=== PATIENT | male | born 1935 | race Caucasian/White ===

== ENCOUNTER 2021-05-02 07:38 | Inpatient (IN) | payer MEDICARE ==
[2021-04-25 15:16] LABS: EOSINOPHILS # (AUTO) 0.2 X10'3 (0-0.9); RED CELL DISTRIBUTION WIDTH 13.9 % (11.5-14.5)
[2021-04-25 15:21] LABS: ALBUMIN/GLOBULIN RATIO 1.2 (1.1-1.5); ALKALINE PHOSPHATASE 93 IU/L (46-116); BLOOD UREA NITROGEN 26 MG/DL (7-18); BUN/CREATININE RATIO 19.4 (5.4-32.0); CALCIUM 8.5 MG/DL (8.5-10.1); CHLORIDE 106 MMOL/L (99-107); CREATININE 1.34 MG/DL (0.60-1.10); PRE OP ALT 17 U/L (30-65); PRE OP ANION GAP 8 (8-16); PRE OP AST 24 U/L (10-37); PRE OP BILIRUB, TOTAL 0.6 MG/DL (0.0-1.0); PRE OP GLUCOSE 157 MG/DL (70-104); PRE OP SODIUM 140 MMOL/L (135-145); TOTAL CARBON DIOXIDE 25.6 MMOL/L (24-32); TOTAL PROTEIN 7.4 G/DL (6.4-8.2); eGFR 50 ML/MIN
[2021-04-25 15:23] LABS: MONOCYTES # (AUTO) 0.8 X10'3 (0-0.9); PRE OP HEMATOCRIT 39.7 % (42.0-52.0); PRE OP POTASSIUM 3.8 MMOL/L (3.4-5.1)
[2021-04-25 16:06] LABS: BASOPHILS % (AUTO) 0.8 % (0-1); EOSINOPHILS % (AUTO) 2.9 % (0-6); LYMPHOCYTES % (AUTO) 20.4 % (21-51); MEAN CORPUSCULAR HEMOGLOBIN 32.8 PG (27.0-31.0); MEAN CORPUSCULAR HGB CONC 33.7 g/dL (33.0-36.5); MEAN CORPUSCULAR VOLUME 97.5 FL (78-98); MEAN PLATELET VOLUME 9.1 FL (7.4-10.4); MONOCYTES % (AUTO) 14.8 % (2-12); NEUTROPHILS % (AUTO) 61.1 % (42-75); PRE OP HEMOGLOBIN 13.4 g/dL (14.0-17.9); PRE OP PLATELET COUNT 176 X10'3 (140-440); RED BLOOD COUNT 4.07 X10'6 (4.70-6.10)
[2021-04-25 16:07] LABS: LYMPHOCYTES # (AUTO) 1.1 X10'3 (1.1-4.8); NEUTROPHILS # (AUTO) 3.4 X10'3 (1.8-7.7)
[2021-05-02] VITALS (18 sets, daily range): BP systolic 122–180; BP diastolic 66–106
[~2021-05-02] VITALS: Ht 167.6 cm; Wt 71.4 kg
[~2021-05-02 07:38] MED LIST: DOCUMENT DATE & TIME OF BETA-BLOCKER PO ONE; GABA-530 PO; HYDR12.55 PO; MELO-100 PO; METO-384 PO; OXYB5TAB16 PO; cefazolin/dext.iso 2gm/100ml IV ONE; famotidine 20mg tablet PO ONE; ringers solution, lacted 1,000 ML IV SCH; tranexamic acid 650mg tablet PO ONE; vancomycin 1,500 MG in NS 300ml IV soln IV ONE
[2021-05-02] MEDS ORDERED: sevoflurane 250ml liquid IH ONE (10:45)
[2021-05-02] MEDS ORDERED: dexamethasone sod phosphate 10mg/ml inj ONE (10:45)
[2021-05-02] MEDS ORDERED: fentaNYL/PF 50MCG/1 ML 2ML syringe ONE (10:56)
[2021-05-02] MEDS ORDERED: midazolam 1 mg/ML 2ml injection ONE (11:19)
[2021-05-02] MEDS ORDERED: ROPIVAcaine 0.5% (5mg/ml) 30ml vial ONE ×2 (11:48→12:34)
[2021-05-02] MEDS ORDERED: ketorolac trometh. 30mg/ml inj. ONE (11:48)
[2021-05-02] MEDS ORDERED: acetaminophen 1,000mg/100ml IV 100 ML IV PRN (12:00)
[2021-05-02] MEDS ORDERED: meperidine/PF 25mg/ml syringe IV PRN ×3 (12:00)
[2021-05-02] MEDS ORDERED: ondansetron/PF 4mg/2ml inj IV PRN ×2 (12:00→12:50)
[2021-05-02] MEDS ORDERED: hydrALAZINE 20mg/ml inj. IV PRN (12:00)
[2021-05-02] MEDS ORDERED: labetalol 20mg/4ml (5mg/ml) syringe IV PRN (12:00)
[2021-05-02] MEDS ORDERED: morphine 2 MG/ML inj. syringe IV PRN (12:00)
[2021-05-02] MEDS ORDERED: ROPIVAcaine 0.2% (10 MG/5 ML) BOLUS INJECTION INTERSCALE PRN (12:00)
[2021-05-02] MEDS ORDERED: ringers solution, lacted 1,000 ML IV SCH (12:00)
[2021-05-02] MEDS ORDERED: ROPIVAcaine 0.2%/PF PUMP/bolus 545 ML INTERSCALE SCH (12:00)
[2021-05-02] MEDS ORDERED: morphine 4 MG/ML inj SYRINge IV PRN (12:00)
[2021-05-02] MEDS ORDERED: proCHLORperazine 10 MG/2 ml inj IV PRN (12:00)
[2021-05-02] MEDS ORDERED: 0.9 % SODIUM CHLORIDE 10 ML VIAL ONE (12:35)
[2021-05-02] MEDS ORDERED: ePHEDrine 50MG/ML INJ. ONE (12:35)
[2021-05-02] MEDS ORDERED: propofol inj 20 ML IV ONE (12:35)
[2021-05-02] MEDS ORDERED: rocuronium 10mg/ml inj IV ONE (12:35)
[2021-05-02] MEDS ORDERED: LIDOcaine 2% (20mg/ml) 5ml vial ONE (12:35)
[2021-05-02] MEDS ORDERED: ondansetron/PF 4mg/2ml inj ONE (12:38)
[2021-05-02] MEDS ORDERED: glycopyrrolate 0.2mg/ml inj ONE (12:41)
[2021-05-02] MEDS ORDERED: neostigmine methylsulfate 1 MG/ML 10ml vial ONE (12:41)
[2021-05-02] MEDS ORDERED: diphenhydrAMINE 25mg capsule PO PRN ×2 (12:50)
[2021-05-02] MEDS ORDERED: acetaminophen 325mg tablet PO PRN (12:50)
[2021-05-02] MEDS ORDERED: oxyCODONE IR 5mg (immed. release) tablet PO PRN ×2 (12:50)
[2021-05-02] MEDS ORDERED: HYDROmorphone 1 mg/ml syringe IV PRN (12:50)
[2021-05-02] MEDS ORDERED: HYDROmorphone inj. 0.5 MG/0.5 ML DISP.SYRIN IV PRN (12:50)
[2021-05-02] MEDS ORDERED: magnesium hydroxide 30ml (MOM) UD suspension PO PRN (12:50)
[2021-05-02] MEDS ORDERED: bisacodyl 10mg suppository rectal RC PRN (12:50)
[2021-05-02] MEDS ORDERED: gabapentin 300mg capsule PO SCH (13:00)
--- NOTE | 2021-05-02 13:00 | NUR ---
Received from OR via BED, accompanied by Anesthesiologist and report given by Anesthesiologist. PATIENT WAKING UP, NO S/S OF PAIN, V/S WNL, SCD ON, 20G TO LUE, RIGHT SHOULDER DRESSING CDI W/ SLING. ICE AND ELEVATED RUE.
--- NOTE | 2021-05-02 14:30 | NUR ---
PATIENT A&OX4, DENIES PAIN, V/S WNL, SCD ON, 20G TO LUE, RIGHT SHOULDER DRESSING CDI W/ SLING. ICE AND ELEVATED RUE. ON Q STARTED, PATIENT TAKEN TO SURGICAL AND REPORT GIVEN ENMA PAUL WHO HAS TAKEN OVER PATIENT CARE.
[2021-05-02 15:50] LABS: LYMPHOCYTES,SYNOVIAL FLUID 67 % (0-75); MONOCYTES,SYNOVIAL FLUID 31 % (0-0); NEUTROPHILS,SYNOVIAL FLUID 2 % (0-25); SYNOVIAL LINING CELLS MANY
[2021-05-02 16:11] LABS: APPEARANCE,SYNOVIAL FLUID HAZY; COLOR,SYNOVIAL FLUID RED; SYN WBC 1150 /CU MM (0-200)
[2021-05-02 16:12] LABS: SYN RBC 12100 /CU MM (0)
[2021-05-02] MEDS: gabapentin 300mg capsule PO SCH (19:47)
[2021-05-02] MEDS: acetaminophen 325mg tablet PO SCH ×2 (19:47→20:00)
[2021-05-02] MEDS: ceFAZolin/D5W- 1GM premix 50 ML IV SCH (19:47)
[2021-05-02] MEDS: potassium cl 20mEq in 1/2 NS 1,000 ML IV SCH ×2 (19:47→20:50)
[2021-05-02] MEDS ORDERED: vancomycin/NS 1 GM ADD-VANTAGE 250 ML IV SCH (20:00)
[2021-05-02] MEDS ORDERED: sennosides 8.6mg tablet PO SCH (21:00)
[2021-05-03 00:10] VITALS: BP 153/82
[2021-05-03] MEDS: ceFAZolin/D5W- 1GM premix 50 ML IV SCH (01:34)
[2021-05-03] MEDS: acetaminophen 325mg tablet PO SCH ×3 (01:35→14:00)
--- NOTE | 2021-05-03 02:09 | NUR ---
took off scd's keeping pt awake.
[2021-05-03] MEDS: potassium cl 20mEq in 1/2 NS 1,000 ML IV SCH (04:50)
--- NOTE | 2021-05-03 06:17 | NUR ---
reported to days. noted pt anticipates discharge today
--- NOTE | 2021-05-03 06:29 | NUR ---
Patient in room [facility]. I have received report from SANDRITA Lo and had the opportunity to ask questions and assume patient care.
[2021-05-03 06:38] LABS: BASOPHILS % (AUTO) 0.1 % (0-1); EOSINOPHILS % (AUTO) 0.1 % (0-6); HEMATOCRIT 36.9 % (42.0-52.0); HEMOGLOBIN 12.4 g/dl (14.0-17.9); LYMPHOCYTES # (AUTO) 0.7 X10'3 (1.1-4.8); LYMPHOCYTES % (AUTO) 9.2 % (21-51); MEAN CORPUSCULAR HEMOGLOBIN 33.7 PG (27.0-31.0); MEAN CORPUSCULAR HGB CONC 33.7 g/dL (33.0-36.5); MEAN CORPUSCULAR VOLUME 99.8 FL (78-98); MEAN PLATELET VOLUME 9.3 FL (7.4-10.4); MONOCYTES # (AUTO) 1.4 X10'3 (0-0.9); MONOCYTES % (AUTO) 18.2 % (2-12); NEUTROPHILS # (AUTO) 5.7 X10'3 (1.8-7.7); NEUTROPHILS % (AUTO) 72.4 % (42-75); PLATELET COUNT 173 X10'3 (140-440); RED BLOOD COUNT 3.69 X10'6 (4.70-6.10); RED CELL DISTRIBUTION WIDTH 13.6 % (11.5-14.5); WHITE BLOOD COUNT 7.9 X10'3 (4.5-11.0)
[2021-05-03] MEDS: gabapentin 300mg capsule PO SCH (07:19)
[2021-05-03 07:30] LABS: ANION GAP 9 (8-16); CHLORIDE 107 MMOL/L (99-107); POTASSIUM 4.2 MMOL/L (3.5-5.1); SODIUM 139 MMOL/L (135-145); TOTAL CARBON DIOXIDE 22.6 MMOL/L (24-32)
[2021-05-03 07:53] LABS: LARGE PLATELETS FEW; PLATELET ESTIMATE NORMAL; TOTAL CELLS COUNTED 100
[2021-05-03] MEDS ORDERED: HYDROchlorothiazide 12.5mg capsule PO SCH (08:00)
[2021-05-03] MEDS ORDERED: MELOXICAM 7.5MG TAB PO SCH (08:00)
[2021-05-03] MEDS ORDERED: oxybutynin 5mg tablet PO SCH (08:00)
[2021-05-03] MEDS ORDERED: metoprolol succinate 25mg (24-HOUR) SR. Tablet PO SCH (08:00)
[2021-05-03 08:19] VITALS: BP 151/70
[2021-05-03] MEDS ORDERED: aspirin 325mg tablet PO SCH (08:30)
[2021-05-03 11:00] VITALS: BP 156/79
--- NOTE | 2021-05-03 12:21 | NUR ---
Melissa Griffith in to see patient. She instructed patient to not remove dressing but if "oozing" to change it. She instructed patient he is ok to remove ONQ ball and shower on Saturday. Patient verbalized understanding of teaching.
--- NOTE | 2021-05-03 15:00 | NUR ---
Discussed with patient discharge instructions. Patient did not want me to go over discharge packet. Patient states he is anxious to go home and stated he has been here many times and knows what he is doing and he will read it when he goes home. Patient distracted with going home. Attempted to reinforce instructions by Melissa but again patient stated he will read instructions when he gets home and placed instructions in bag. Patient given Bao pack to go home. Patient's daughter here to picker packer patient and he was escorted down to [facility]. Patient preferred to walk rather than wheelchair. All patient belongings sent home with patient.
[2021-05-04] MEDS ORDERED: acetaminophen 325mg tablet PO PRN (12:50)
== END 2021-05-03 14:55 | disposition home or self-care (01) | DRG 496 ==
LOC: UNDOADMIN 07:38 → PAS IN 07:38 → SUR 3N 14:35 → PAS IN 14:35
PROVIDERS: ADMIT Orthopaedic Surgery; ATTEND Orthopaedic Surgery
PROC: 0RPJ0JZ Removal of Synthetic Substitute from Right Shoulder Joint, Open Approach (ICD-10-PCS; 2021-05-02)
PROC: 3E0T3BZ Introduction of Anesthetic Agent into Peripheral Nerves and Plexi, Percutaneous Approach (ICD-10-PCS; 2021-05-02)
PROC: 3E0T33Z Introduction of Anti-inflammatory into Peripheral Nerves and Plexi, Percutaneous Approach (ICD-10-PCS; 2021-05-02)
PROC: 0RUJ0JZ Supplement Right Shoulder Joint with Synthetic Substitute, Open Approach (ICD-10-PCS; principal; 2021-05-02 10:45)
DX: T84.028A Dislocation of other internal joint prosthesis, initial encounter (principal); D62 Acute posthemorrhagic anemia; Z47.1 Aftercare following joint replacement surgery; Y83.8 Other surgical procedures as the cause of abnormal reaction of the patient, or of later complication, without mention of misadventure at the time of the procedure; Z96.611 Presence of right artificial shoulder joint; Z96.652 Presence of left artificial knee joint; I10 Essential (primary) hypertension; Z79.899 Other long term (current) drug therapy; Y92.89 Other specified places as the place of occurrence of the external cause
CPT/HCPCS: 36415; 80051; 80053; 82948; 85007; 85025; 87070; 87075; 87081; 89051; A4565; A4618; A7000; C1776; G0378; J0690; J1100; J1885; J2001; J2250; J2405; J2704; J2710; J2795; J3010; J3370; J3480; J3490; J7040; J7120; U0003; U0005

== ENCOUNTER 2022-01-24 07:57 | Day surgery (SDC) | payer MEDICARE ==
[2022-01-18 10:53] LABS: BASOPHILS % (AUTO) 0.3 % (0-1); EOSINOPHILS # (AUTO) 0.1 X10'3 (0-0.9); EOSINOPHILS % (AUTO) 1.4 % (0-6); HEMATOCRIT 37.2 % (42.0-52.0); HEMOGLOBIN 12.5 g/dl (14.0-17.9); MEAN CORPUSCULAR HEMOGLOBIN 32.8 PG (27.0-31.0); MEAN CORPUSCULAR HGB CONC 33.5 g/dL (33.0-36.5); MEAN CORPUSCULAR VOLUME 97.8 FL (78-98); MONOCYTES # (AUTO) 0.7 X10'3 (0-0.9); MONOCYTES % (AUTO) 15.4 % (2-12); NEUTROPHILS # (AUTO) 2.6 X10'3 (1.8-7.7); NEUTROPHILS % (AUTO) 59.9 % (42-75); PLATELET COUNT 183 X10'3 (140-440); RED BLOOD COUNT 3.81 X10'6 (4.70-6.10); RED CELL DISTRIBUTION WIDTH 13.2 % (11.5-14.5); WHITE BLOOD COUNT 4.3 X10'3 (4.5-11.0)
[2022-01-18 11:04] LABS: APTT 28 SECONDS (22-32)
[2022-01-18 11:11] LABS: ALBUMIN 4.1 G/DL (3.4-5.0); ANION GAP 11 (8-16); BILIRUBIN,TOTAL 0.6 MG/DL (0.1-1.0); BLOOD UREA NITROGEN 32 MG/DL (7-18); BUN/CREATININE RATIO 30.5 (5.4-32.0); CALCIUM 8.4 MG/DL (8.5-10.1); CHLORIDE 104 MMOL/L (99-107); CREATININE 1.05 MG/DL (0.60-1.10); GLUCOSE 95 MG/DL (70-104); POTASSIUM 4.1 MMOL/L (3.5-5.1); SODIUM 139 MMOL/L (135-145); TOTAL CARBON DIOXIDE 23.6 MMOL/L (24-32); TOTAL PROTEIN 7.5 G/DL (6.4-8.2); eGFR 67 ML/MIN
[2022-01-18 11:12] LABS: ALANINE AMINOTRANSFERASE 16 U/L (12-78); ALBUMIN/GLOBULIN RATIO 1.2 (1.1-1.5); ALKALINE PHOSPHATASE 74 IU/L (46-116); ASPARTATE AMINO TRANSFERASE 21 U/L (10-37)
[2022-01-18 11:19] LABS: PLATELET ESTIMATE NORMAL; POIKILOCYTOSIS 1+; TOTAL CELLS COUNTED 100
[2022-01-24] VITALS (13 sets, daily range): BP systolic 145–182; BP diastolic 58–85
[~2022-01-24] VITALS: Ht 167.6 cm; Wt 70.4 kg
[~2022-01-24 07:57] MED LIST changes: -DOCUMENT DATE & TIME OF BETA-BLOCKER PO ONE; -MELO-100 PO; -cefazolin/dext.iso 2gm/100ml IV ONE; -famotidine 20mg tablet PO ONE; -ringers solution, lacted 1,000 ML IV SCH; -tranexamic acid 650mg tablet PO ONE; -vancomycin 1,500 MG in NS 300ml IV soln IV ONE
[2022-01-24] MEDS ORDERED: LISI20TA28 PO (08:24)
[2022-01-24] MEDS ORDERED: MELO-100 PO (08:24)
[2022-01-24] MEDS ORDERED: TAMSULOSIN PO (08:24)
[2022-01-24] MEDS ORDERED: diphenhydrAMINE 25mg capsule PO PRN (08:25)
[2022-01-24] MEDS ORDERED: nitroGLYCERIN 0.4mg SUBLingual tab SL PRN (08:25)
[2022-01-24] MEDS ORDERED: LORazepam 0.5 MG tablet PO PRN (08:25)
[2022-01-24] MEDS ORDERED: midazolam 1 mg/ML 2ml injection ONE (10:35)
[2022-01-24] MEDS ORDERED: iohexol 300mg/ml 100ml inj. ONE (10:35)
[2022-01-24] MEDS ORDERED: fentaNYL/PF 50MCG/1 ML 2ML syringe ONE (10:35)
[2022-01-24] MEDS ORDERED: heparin 1,000 UNITS/NS 500ml 500 ML ONE ×2 (10:35→10:36)
[2022-01-24] MEDS ORDERED: LIDOcaine 1% 30ml preserv. free vial ONE (10:36)
[2022-01-24] MEDS ORDERED: IOHEXOL 350 MG/ML INFUS..BTL 125ML IV ONE (10:55)
[2022-01-24] MEDS ORDERED: enalaprilat dihydrate 2.5mg/2ml vial IV ONE (11:21)
[2022-01-24] MEDS ORDERED: nitroGLYCERIN-Tridil 50MG/D5W 250 ML IV ONE (11:23)
[2022-01-24] MEDS ORDERED: iohexol 350 MG/ML 50ML vial IV ONE (11:34)
== END 2022-01-24 18:00 | disposition home or self-care (01) ==
LOC: SSTAY O 07:57
PROVIDERS: ATTEND Internal Medicine Cardiovascular Disease
DX: R94.39 Abnormal result of other cardiovascular function study (principal); I25.10 Atherosclerotic heart disease of native coronary artery without angina pectoris; I10 Essential (primary) hypertension; N40.1 Benign prostatic hyperplasia with lower urinary tract symptoms; E78.5 Hyperlipidemia, unspecified; J44.9 Chronic obstructive pulmonary disease, unspecified; Z98.41 Cataract extraction status, right eye; Z98.42 Cataract extraction status, left eye; Z98.890 Other specified postprocedural states; Z96.652 Presence of left artificial knee joint; Z87.891 Personal history of nicotine dependence; Z79.899 Other long term (current) drug therapy; Z79.01 Long term (current) use of anticoagulants
CPT/HCPCS: 36415; 71046; 80053; 85025; 85610; 85730; 93005; 93458; 93567; 99152; 99153; C1760; C1769; J1644; J2250; J3010; J3490; J7030; Q0163; Q9967; 85007; A4620; A6258